=== PATIENT | female | born 1960 | race Caucasian/White ===

== ENCOUNTER → 2019-12-30 | Day surgery (SDC) | payer MEDICARE, OTHER ==
[~2019-12-30] MED LIST: ALPRAZOLAM 0.50.5 M1 PO; CARDURA4 MG PO; CINNAMON BARK1 GM PO; CRESTOR10 MG PO; FUROSEMIDE 20 M20 MG PO; LOPERAMIDE 2 MG2 M1 PO; NORCO 5-325 TA1 EAC1 PO; NORVASC5 MG PO; ROCALTROL0.25 MCG PO; SODIUM BICARBO650 M3 PO; TUMS300 MG PO; VITAMIN D3 PO
--- NOTE | ~2019-12-30 | OP ---
[address] [address] OPERATIVE REPORT Name: KARISSAASHWINI J Room: [facility]#: [id number] Admission: 12/30/19 Attend Phys: Kali Osman Discharge: Date of : 56 Report #: [id number] THIS REPORT FOR: //name// cc: Ashlyn Deutsch MD, Ghazal A. MD ~ THIS REPORT FOR: //name// CC: Ashlyn Osman DATE OF SERVICE: 12/30/2019 PREOPERATIVE DIAGNOSIS: End-stage renal disease. POSTOPERATIVE DIAGNOSIS: End-stage renal disease. OPERATIONS: 1. Laparoscopic placement of tunneled intraperitoneal catheter. 2. Laparoscopic omentopexy. SURGEON: Kali Osman MD ANESTHESIA: General. ESTIMATED BLOOD LOSS: Minimal. SPECIMEN: None. DESCRIPTION OF PROCEDURE: After informed consent was obtained, the patient was brought to the operating room and placed supine. SCDs were placed and working, preoperative antibiotics were administered, general anesthesia was induced. The abdomen was prepped and draped in the usual sterile fashion. A 5-mm incision was made in the left upper quadrant. A 5-mm trocar was placed under direct vision. Pneumoperitoneum was established. Left-sided 5-mm trocar was placed. A left rectus sheath, 8-mm trocar was placed. A 62-cm swan neck Covidien catheter was inserted. The coiled tip was placed down the pelvis. The catheter was then pulled back and the trocar was then removed. Catheter was then tunneled to the left upper quadrant of the abdomen with a tunneling device. I grabbed the omentum with an atraumatic grasper and brought it up to the right upper quadrant. A suture passer was used to pass a 2-0 Vicryl suture through the omentum and then back out through the skin. This performed the omentopexy. The ports were removed under direct vision. I flushed the catheter with 750 mL of heparinized saline. It flushed very easily. I then drained 250 mL by gravity and it [place] [address] OPERATIVE REPORT Name: KARISSAASHWINI Room: [facility]#: [id number] Admission: 12/30/19 Attend Phys: Kali Osman Discharge: Date of : 56 Report #: [id number] The skin incisions were closed with 4-0 Monocryl. Incisions were dressed with Steri-Strips and gauze. Occlusive dressing was placed over the catheter. COMPLICATIONS: None. DISPOSITION: The patient was taken to recovery in satisfactory condition. By: 1321 1330Josmiley Osman MD /nt
[2019-12-30 10:52] LABS: HEMATOCRIT 34.2 % (37.0-47.0); HEMOGLOBIN 11.9 gm/dL (12.0-15.0); MCH 31.7 pg (26.0-34.0); MCHC 34.8 g/dL (28.0-37.0); MCV 91.1 fL (80.0-100.0); MPV 8.7 fl. (7.2-11.1); RBC 3.75 mil/uL (4.20-5.00); RDW-CV 12.8 % (10.5-14.5); WBC 4.9 thou/uL (4.0-11.0)
[2019-12-30 11:04] LABS: CREATININE 3.3 mg/dL (0.6-1.3); POTASSIUM 3.6 mmol/L (3.5-5.1)
--- NOTE | 2019-12-31 09:43 | EKG ---
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
== END | disposition home or self-care (01) ==
LOC: M.SUR 10:31
PROVIDERS: ATTEND Surgery
DX: I12.0 Hypertensive chronic kidney disease with stage 5 chronic kidney disease or end stage renal disease (principal); N18.6 End stage renal disease; Z11.59 Encounter for screening for other viral diseases; Z98.890 Other specified postprocedural states; Z79.899 Other long term (current) drug therapy; Z99.2 Dependence on renal dialysis

== ENCOUNTER → 2020-12-03 | Day surgery (SDC) | payer MEDICARE, OTHER ==
[~2020-12-03] MED LIST changes: +ACID CONTROLLER20 MG PO
[2020-12-03 08:52] LABS: HEMATOCRIT 35.8 % (37.0-47.0); HEMOGLOBIN 12.3 gm/dL (12.0-15.0); MCH 30.7 pg (26.0-34.0); MCHC 34.2 g/dL (28.0-37.0); MCV 89.8 fL (80.0-100.0); MPV 8.2 fl. (7.2-11.1); RBC 3.99 mil/uL (4.20-5.00); RDW-CV 13.3 % (10.5-14.5); WBC 6.1 thou/uL (4.0-11.0)
[2020-12-03 09:03] LABS: CALCIUM 8.7 mg/dL (8.5-10.1); CREATININE 4.4 mg/dL (0.6-1.3); POTASSIUM 3.3 mmol/L (3.5-5.1)
--- NOTE | 2020-12-03 10:37 | EKG ---
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1960 Requested By: Huong Caceres Order Number: [id number] Reading MD: Sadi Pitts Measurements Intervals [place] Rate: 62 P: 56 SC: 151 QRS: 36 QRSD: 98 T: 95 QT: 456 QTc: 463 Interpretive Statements Sinus rhythm Borderline low voltage, extremity leads Nonspecific T abnormalities, lateral leads Compared to ECG 12/30/2019 10:48:49 no change Electronically Signed On 12-03-2020 10:37:11 CDT by Sadi Pitts [email or web address] <ELECTRONICALLY SIGNED> By: Sadi Pitts MD, [facility] 12/03/20 1037 0852 0852 Sadi Pitts MD, [facility] /EPI
--- NOTE | 2020-12-05 11:08 | OP ---
[facility] [address] [place] [address] OPERATIVE REPORT Name: ASHWINI HANCOCK Room: [facility]#: [id number] Admission: 12/03/20 Attend Phys: Kali Osman Discharge: Date of : 56 Report #: [id number] THIS REPORT FOR: cc: Ashlyn Deutsch MD, Ghazal A. MD Patterson, Jonathan D. MD ~ DOC #: [id number] Kali Osman MD DATE OF SURGERY: 12/03/2020 PREOPERATIVE DIAGNOSES: Malfunctioning peritoneal catheter with end-stage renal disease. POSTOPERATIVE DIAGNOSES: Malfunctioning peritoneal catheter with end-stage renal disease. OPERATION: 1. Diagnostic laparoscopy. 2. Laparoscopic revision of peritoneal catheter with removal of obstructing material. 3. Laparoscopic enterolysis. SURGEON: Kali Osman MD. ANESTHESIA: General. ESTIMATED BLOOD LOSS: Minimal. SPECIMEN: None. DESCRIPTION OF PROCEDURE: After informed consent was obtained, the patient was brought to the operating room and placed supine. SCDs were placed and working, preoperative antibiotics were administered, general anesthesia was induced. The abdomen was prepped and draped in the usual sterile fashion. A 5 mm incision was made in the left upper quadrant. A 5 mm trocar was placed under direct vision. Pneumoperitoneum was established. Left-sided 5 mm trocar was placed. Examination was undertaken. She had her catheter wrapped around an adhesive band in the left lower quadrant of the abdomen. I took the catheter and placed it back into the pelvis into its normal position. I then lysed the adhesion with a Bovie. This was an adhesive band up to the abdominal wall and this was cut. I then flushed the catheter easily and obstructive material was removed. The catheter was then flushed with 750 mL of heparinized saline. It drained 250 mL easily. The ports were removed under direct vision. The skin was closed with 4-0 Monocryl. Incisions were sealed with Steri-Strips. COMPLICATIONS: [place] [address] OPERATIVE REPORT Name: ASHWINI HANCOCK Room: [facility]#: [id number] Admission: 12/03/20 Attend Phys: Kali Osman Discharge: Date of : 56 Report #: [id number] DISPOSITION: The patient was taken to recovery in satisfactory condition. Kali Osman MD JDP/NIS <ELECTRONICALLY SIGNED> By: Kali Osman MD 12/05/20 1108 1100 1217Josmiley Osman MD /nt
== END | disposition home or self-care (01) ==
LOC: M.SUR 05:18
PROVIDERS: Anesthesiology; ATTEND Surgery
DX: T85.691A Other mechanical complication of intraperitoneal dialysis catheter, initial encounter (principal); I12.0 Hypertensive chronic kidney disease with stage 5 chronic kidney disease or end stage renal disease; N18.6 End stage renal disease; Z98.890 Other specified postprocedural states; Z79.899 Other long term (current) drug therapy; Y83.8 Other surgical procedures as the cause of abnormal reaction of the patient, or of later complication, without mention of misadventure at the time of the procedure

== ENCOUNTER → 2020-12-06 | Day surgery (SDC) | payer MEDICARE, OTHER ==
[2020-12-06 08:21] LABS: HEMATOCRIT 33.8 % (37.0-47.0); HEMOGLOBIN 11.8 gm/dL (12.0-15.0); MCH 31.4 pg (26.0-34.0); MCV 89.7 fL (80.0-100.0); MPV 8.4 fl. (7.2-11.1); RBC 3.77 mil/uL (4.20-5.00); RDW-CV 13.4 % (10.5-14.5); WBC 4.2 thou/uL (4.0-11.0)
[2020-12-06 08:33] LABS: POTASSIUM 3.5 mmol/L (3.5-5.1)
--- NOTE | 2020-12-11 10:47 | OP ---
[address] [address] OPERATIVE REPORT Name: ASHWINI HANCOCK Room: [facility]#: [id number] Admission: 12/06/20 Attend Phys: Kali Osman Discharge: Date of : 56 Report #: [id number] THIS REPORT FOR: cc: Ashlyn Deutsch MD, Ghazal A. MD Patterson, Jonathan D. MD ~ DOC #: [id number] Kali Osman MD DATE OF SURGERY: 12/06/2020 PREOPERATIVE DIAGNOSES: End-stage renal disease with malfunctioning peritoneal catheter. POSTOPERATIVE DIAGNOSES: End-stage renal disease with malfunctioning peritoneal catheter. OPERATION: Diagnostic laparoscopy. SURGEON: Kali Osman MD. ANESTHESIA: General. ESTIMATED BLOOD LOSS: Minimal. SPECIMEN: None. DESCRIPTION OF PROCEDURE: After informed consent was obtained, the patient was brought to the operating room and placed supine. SCDs were placed and working, preoperative antibiotics were administered, general anesthesia was induced. The abdomen was prepped and draped in the usual sterile fashion. A 5 mm incision was made in the left upper quadrant. A 5 mm trocar was placed under direct vision. I then examined the catheter. It was in very good location. I then flushed the catheter and it flushed easily and drained easily as well. The ports were then removed under direct vision. The skin was closed with 4-0 Monocryl. Incisions were sealed with Steri-Strips. COMPLICATIONS: None. DISPOSITION: The patient was taken to recovery in satisfactory condition. MD LOLA Chamberlain/[place] [address] OPERATIVE REPORT Name: ASHWINI HANCOCK Room: [facility]#: [id number] Admission: 12/06/20 Attend Phys: Kali Osman Discharge: Date of : 56 Report #: [id number] <ELECTRONICALLY SIGNED> By: Kali Osman MD 12/11/20 1047 0945 1005Kali Osman MD /ann
== END | disposition home or self-care (01) ==
LOC: M.SUR 07:46
PROVIDERS: Anesthesiology; ATTEND Surgery
DX: T85.691A Other mechanical complication of intraperitoneal dialysis catheter, initial encounter (principal); I12.0 Hypertensive chronic kidney disease with stage 5 chronic kidney disease or end stage renal disease; N18.6 End stage renal disease; Z98.890 Other specified postprocedural states; Z79.899 Other long term (current) drug therapy; Y83.8 Other surgical procedures as the cause of abnormal reaction of the patient, or of later complication, without mention of misadventure at the time of the procedure